=== PATIENT | male | born 1940 | race Caucasian/White ===

== ENCOUNTER → 2023-09-22 14:21 | Outpatient (REF) | payer MEDICARE, OTHER, SELFPAY | LOC: RAD 14:21 | PROVIDERS: ATTENDING PHYSICIAN Internal Medicine Geriatric Medicine | DX: Z87.891 Personal history of nicotine dependence (principal) | CPT/HCPCS: 71250 ==

== ENCOUNTER 2024-05-02 19:40 | Emergency (ER) | payer OTHER, SELFPAY ==
[2024-05-02 19:45] VITALS: BP 147/75
--- NOTE | 2024-05-02 21:34 | ED.SKININJ ---
HPI-Injury
General
Chief Complaint: Skin Surface Trauma
Source: patient
Exam Limitations: none
Time Seen by Provider: 05/02/24 21:09
History of Present Illness-Injury
Initial Injury comments:
83-year-old male presents with laceration to left hand sustained today. He fell and cut his finger. No pain. No deformity no loss of function or numbness or tingling. Last tetanus vaccine unknown. No other complaints
Phy Exam
Physical Exam
Physical Exam:
General: Well-appearing male no acute respiratory distress
Skin: 2.5 cm laceration volar aspect base of index finger left hand no tendon or nerve involvement. No significant bleeding
Musculoskeletal: Full range of motion left index finger with good sensation and capillary refill
Course
Orders/Labs/Results
Orders:
Orders
05/02/24 21:32
Tetanus/Diphth/Acelpertussis [Adacel] 0.5 ml IM .ONCE ONE
Vital Signs
Initial and Last Documented VS:
Initial Vital Signs
Temp Pulse Resp BP Pulse Ox
97.7 F 89 18 147/75 97
05/02/24 19:45 05/02/24 19:45 05/02/24 19:45 05/02/24 19:45 05/02/24 19:45
Last Documented Vital Signs
Temp Pulse Resp BP Pulse Ox
97.7 F 89 18 147/75 97
05/02/24 19:45 05/02/24 19:45 05/02/24 19:45 05/02/24 19:45 05/02/24 19:45
MDM/Problems Addressed
Differential Diagnosis Includes:
Laceration left hand base of index finger without tendon involvement or neurovascular injury. The wound was copiously irrigated with saline and anesthetized in a local fashion using 1% lidocaine. 5-0 Prolene sutures were used in a running and
simple interrupted fashion to close the wound. A total of 7 sutures were required. Dressing was applied tetanus vaccine updated. Stable for discharge with wound care instructions considered x-rays however not indicated given lack of tenderness or
deformity
*Critical Care Note
Total Time (30-74mins, 75-104mins- exclusive of procedures): Not Applicable
ED Attending Note
-
Portions of this chart may have been created with voice recognition software.� Occasional wrong word or��sound alike� substitutions may have occurred due to the inherent limitations of voice recognition software.
Discharge Plan
Departure
Patient Disposition: Home (Routine Discharge)
Date of Disposition: 05/02/24
Time of Disposition: 21:39
Patient with high blood pressure during this ER visit?: No
Discharge Problem:
Laceration
Instructions: Laceration Repair With Stitches (DC)
Prescriptions:
No Action
aspirin-codeine 1 EACH tablet
1 tab PO DAILY
multivitamin with folic acid [Tab-A-Noam] 1 TABLET tablet
1 tab PO DAILY
Lisinopril
20 mg PO DAILY
VITAMIN C
PRN (Reason: cold)
Activity Restrictions/Additional Instructions:
Keep clean. Have sutures removed in 12 to 14 days. Return if needed otherwise
Interventions
Interventions:
*Risk Screen - Suicide Last Done: 05/02/24 19:45
*General Assessment Last Done: 05/02/24 19:45
*ED COVID-19 Vaccine History Last Done: 05/02/24 19:45
Discharge Date and Time
Print Language: SLOVENIAN
[2024-05-02] MEDS: ADACEL 0.5 ML IM (21:50)
== END 2024-05-02 21:56 | disposition home or self-care (01) ==
LOC: EMR 19:40
PROVIDERS: EMERGENCY PHYSICIAN Emergency Medicine; FAMILY PHYSICIAN Internal Medicine Geriatric Medicine
DX: S61.412A Laceration without foreign body of left hand, initial encounter (principal); W19.XXXA Unspecified fall, initial encounter; Z23 Encounter for immunization
CPT/HCPCS: 90471; 12001; 99282; 90715

== ENCOUNTER → 2024-05-12 09:34 | Outpatient (REF) | payer OTHER, SELFPAY | LOC: RAD 09:34 | PROVIDERS: ATTENDING PHYSICIAN Nurse Practitioner Family; FAMILY PHYSICIAN Internal Medicine Geriatric Medicine | DX: T14.8XXA Other injury of unspecified body region, initial encounter (principal); L08.9 Local infection of the skin and subcutaneous tissue, unspecified | CPT/HCPCS: 73130 ==

== ENCOUNTER → 2024-12-28 06:40 | Outpatient (REF) | payer OTHER, SELFPAY | LOC: RSP 06:40 | PROVIDERS: ATTENDING PHYSICIAN Internal Medicine Geriatric Medicine | DX: J43.2 Centrilobular emphysema (principal); R05.3 Chronic cough | CPT/HCPCS: 88738; 94010; 94727; 94729 ==